=== PATIENT | female | born 1995 | race Hispanic/Latino ===

== ENCOUNTER 2018-07-08 21:03 | Emergency (ER) | payer OTHER ==
[2018-07-08 21:54] LABS: BASOPHILS % (AUTO) 0.8 % (0.0-5.0); EOSINOPHILS % (AUTO) 1.2 % (0.0-8.0); LYMPHOCYTES % (AUTO) 25.2 % (21.0-51.0); MEAN CORPUSCULAR HEMOGLOBIN 29.6 pg (27.0-33.0); MEAN CORPUSCULAR HGB CONC 33.5 g/dL (32.0-36.0); MEAN CORPUSCULAR VOLUME 88.3 fL (79-99); MONOCYTES % (AUTO) 5.8 % (3.0-13.0); PLATELET COUNT (AUTO) 347 K/uL (130-400); RED BLOOD CELL COUNT(AUTO) 4.54 MIL/uL (4.00-5.50); WHITE BLOOD COUNT (AUTO) 14.7 K/uL (4.8-10.8)
[2018-07-08 21:57] LABS: APPEARANCE,URINE Clear (CLEAR); BILIRUBIN,URINE Negative (NEGATIVE); COLOR,URINE Yellow (YELLOW); GLUCOSE, URINE (UA) Negative (NEGATIVE); KETONES,URINE Negative (NEGATIVE); LEUKOCYTE ESTERASE ,URINE Trace (NEGATIVE); NITRATE,URINE Negative (NEGATIVE); OCCULT BLOOD,URINE Negative (NEGATIVE); PH,URINE 6.5 (5.0-8.0); PROTEIN,URINE Negative (NEGATIVE)
[2018-07-08 22:00] LABS: HCG,QUAL RESULT NEGATIVE (NEGATIVE)
[2018-07-08 22:07] LABS: CREATININE 0.5 mg/dL (0.5-1.5); POTASSIUM 3.7 mmol/L (3.5-5.1)
[2018-07-08 22:16] LABS: ALBUMIN 3.8 g/dL (3.5-5.0); BILIRUBIN,TOTAL 0.4 mg/dL (0.2-1.0); TOTAL PROTEIN, SERUM 8.4 g/dL (6.0-8.3)
[2018-07-08 22:18] LABS: BACTERIA,URINE Few /HPF (None Seen); RBC,URINE None Seen /HPF (0-1); WBC,URINE 0-1 /HPF (0-1)
[2018-07-08] MEDS ORDERED: KETOROLAC TROMETHAMINE 30MG/ML ONE (22:25)
[2018-07-08] MEDS ORDERED: IOHEXOL-350 75 ML VIAL IV ONE (22:32)
== END 2018-07-08 23:41 | disposition home or self-care (01) ==
LOC: EDH 21:03
DX: N93.8 Other specified abnormal uterine and vaginal bleeding (principal); I88.0 Nonspecific mesenteric lymphadenitis; R10.30 Lower abdominal pain, unspecified
CPT/HCPCS: 36415; 74177; 80053; 81001; 81025; 84702; 85025; 96374; 99284; J1885; Q9967

== ENCOUNTER 2019-01-30 13:24 | Emergency (ER) | payer OTHER ==
[2019-01-30] MEDS ORDERED: ACETAMINOPHEN EXTRA STRENGTH 500 MG TABLET ONE (14:18)
== END 2019-01-30 15:02 | disposition home or self-care (01) ==
LOC: EDH 13:24
DX: S83.8X2A Sprain of other specified parts of left knee, initial encounter (principal); Z90.49 Acquired absence of other specified parts of digestive tract; W17.89XA Other fall from one level to another, initial encounter; Y93.39 Activity, other involving climbing, rappelling and jumping off; Y92.89 Other specified places as the place of occurrence of the external cause; Y99.8 Other external cause status
CPT/HCPCS: 73562

== ENCOUNTER 2021-07-21 16:33 | Emergency (ER) | payer SELFPAY ==
[~2021-07-21] VITALS: Ht 167.6 cm; Wt 122.5 kg
[2021-07-21 17:02] LABS: BASOPHILS % (AUTO) 0.5 % (0.0-5.0); EOSINOPHILS % (AUTO) 1.9 % (0.0-8.0); HEMATOCRIT 40.4 % (36-48); LYMPHOCYTES % (AUTO) 24.8 % (21.0-51.0); MEAN CORPUSCULAR HEMOGLOBIN 29.6 pg (27.0-33.0); MEAN CORPUSCULAR HGB CONC 33.4 g/dL (32.0-36.0); MEAN CORPUSCULAR VOLUME 88.6 fL (79-99); MONOCYTES % (AUTO) 4.9 % (3.0-13.0); NEUTROPHILS % (AUTO) 67.6 % (40.0-77.0); PLATELET COUNT (AUTO) 307 K/uL (130-400); RED BLOOD CELL COUNT(AUTO) 4.56 MIL/uL (4.00-5.50); RED CELL DISTRIBUTION WIDTH 12.4 % (11.0-15.5)
[2021-07-21 17:10] LABS: APPEARANCE,URINE Clear (CLEAR); BILIRUBIN,URINE Negative (NEGATIVE); COLOR,URINE Yellow (YELLOW); GLUCOSE, URINE (UA) Negative (NEGATIVE); KETONES,URINE Negative (NEGATIVE); LEUKOCYTE ESTERASE ,URINE Negative (NEGATIVE); NITRATE,URINE Negative (NEGATIVE); OCCULT BLOOD,URINE Negative (NEGATIVE); PH,URINE 5.5 (5.0-8.0); PROTEIN,URINE Negative (NEGATIVE)
[2021-07-21 17:19] LABS: CREATININE 0.6 mg/dL (0.5-1.5); POTASSIUM 3.7 mmol/L (3.5-5.1)
[2021-07-21 17:28] LABS: BILIRUBIN,TOTAL 0.3 mg/dL (0.2-1.0); CRP QUANTITATIVE 10.4 mg/L (0.00-9.0); TOTAL PROTEIN, SERUM 8.3 g/dL (6.0-8.3)
[2021-07-21 17:34] VITALS: BP 144/90
[2021-07-21] MEDS ORDERED: ALBU8.5H8 IH (17:45)
[2021-07-21] MEDS ORDERED: FLUT1DIS IH (17:46)
== END 2021-07-21 17:58 | disposition home or self-care (01) ==
LOC: EDH 16:33
DX: R06.02 Shortness of breath (principal); R07.89 Other chest pain; E66.9 Obesity, unspecified; Z79.51 Long term (current) use of inhaled steroids; Z79.899 Other long term (current) drug therapy; Z68.41 Body mass index [BMI] 40.0-44.9, adult
CPT/HCPCS: 36415; 71045; 80053; 81003; 84484; 84703; 85025; 85378; 86140

== ENCOUNTER 2021-09-12 14:14 | Inpatient (IN) | payer OTHER, SELFPAY ==
[~2021-09-12] VITALS: Ht 167.6 cm; Wt 118.1 kg
[~2021-09-12 14:14] MED LIST: ALBU8.5H8 IH; FLUT1DIS IH
[2021-09-12] MEDS ORDERED: 0.9%NACL 1000ML 1,000 ML IV SCH (17:00)
[2021-09-12] MEDS ORDERED: IPRATROPIUM/ALBUTEROL SULFATE 3 ML SOLUTION IH ONE ×3 (17:00→19:59)
[2021-09-12] MEDS ORDERED: DEXAMETHASONE SOD PHOSPHATE 4 MG/ML 1ML VIAL IVP ONE (17:00)
[2021-09-12 17:21] LABS: MEAN CORPUSCULAR HEMOGLOBIN 28.9 pg (27.0-33.0); MEAN CORPUSCULAR HGB CONC 33.3 g/dL (32.0-36.0); PLATELET COUNT (AUTO) 301 K/uL (130-400); RED CELL DISTRIBUTION WIDTH 12.8 % (11.0-15.5); WHITE BLOOD COUNT (AUTO) 16.5 K/uL (4.8-10.8)
[2021-09-12 17:34] LABS: HCG,QUAL RESULT NEGATIVE (NEGATIVE)
[2021-09-12 17:36] LABS: APPEARANCE,URINE Clear (CLEAR); BILIRUBIN,URINE Negative (NEGATIVE); COLOR,URINE Yellow (YELLOW); GLUCOSE, URINE (UA) Negative (NEGATIVE); KETONES,URINE Negative (NEGATIVE); LEUKOCYTE ESTERASE ,URINE Trace (NEGATIVE); NITRATE,URINE Negative (NEGATIVE); OCCULT BLOOD,URINE Negative (NEGATIVE); PROTEIN,URINE Negative (NEGATIVE); UROBILINOGEN,URINE 0.2 mg/dL (0.2-1.0)
[2021-09-12 17:59] LABS: CREATININE 0.5 mg/dL (0.5-1.5); POTASSIUM 3.8 mmol/L (3.5-5.1)
[2021-09-12 18:02] LABS: EOSINOPHILS % (MANUAL) 4 % (1-6); LYMPHOCYTES % (MANUAL) 25 % (22-44); MONOCYTES % (MANUAL) 4 % (2-9); REACTIVE LYMPHOCYTES 4 % (0-0); SEGMENTED NEUTROPHILS % 63 % (40-70)
[2021-09-12 18:03] LABS: ALBUMIN 4.2 g/dL (3.5-5.0); BILIRUBIN,TOTAL 0.5 mg/dL (0.2-1.0); MAN.DIFF COMMENT-IMPRESSION MANUAL DIFFERENTIAL; PLATELET MORPHOLOGY COMMENT ADEQUATE; TOTAL PROTEIN, SERUM 8.5 g/dL (6.0-8.3)
[2021-09-12 18:58] LABS: BACTERIA,URINE Rare /HPF (None Seen); RBC,URINE None Seen /HPF (0-1); WBC,URINE 0-1 /HPF (0-1)
[2021-09-12 18:59] LABS: SQUAMOUS EPITHELIAL CELL,UR 0-2 /HPF (0-2)
[2021-09-12 23:18] LABS: ABG BASE EXCESS -2.3 mmol/L (-2.0-3.0); ABG HCO3 21.7 mmol/L (21.0-28.0); ABG PCO2 35 mmHg (32-45)
[2021-09-13] MEDS ORDERED: GUAIFENESIN-DM 200/20 MG 10 ML PO PRN (00:30)
[2021-09-13] MEDS ORDERED: ONDANSETRON 4MG INJ IV PRN (00:30)
[2021-09-13] MEDS ORDERED: LACTATED RINGERS 1000ML 1,000 ML IV SCH (00:30)
[2021-09-13] MEDS ORDERED: DiphenhydrAMINE HCL 50 MG/ML VIAL IV PRN (00:30)
[2021-09-13] MEDS ORDERED: ERGOCALCIFEROL (VITAMIN D2) 50,000 UNIT CAPSULE PO ONE (00:30)
[2021-09-13] MEDS ORDERED: IPRATROPIUM/ALBUTEROL SULFATE 3 ML SOLUTION IH PRN (00:30)
[2021-09-13] MEDS ORDERED: ACETAMINOPHEN WITH CODEINE 1 TAB TAB PO PRN (00:30)
[2021-09-13] MEDS ORDERED: ERGOCALCIFEROL (VITAMIN D2) 50,000 UNIT CAPSULE ONE (01:47)
[2021-09-13] MEDS ORDERED: 0.9% NACL 250ML 250 ML ONE (01:49)
[2021-09-13] MEDS: ZINC SULFATE 220 CAPSULE PO SCH ×2 (01:53→09:49)
[2021-09-13] MEDS: ASCORBIC ACID 500 MG TAB PO SCH ×2 (01:53→09:49)
[2021-09-13] MEDS: DOXYCYCLINE 100MG+NS 250ML IV SCH ×2 (01:53→13:54)
[2021-09-13] MEDS: CEFTRIAXONE 1G VIAL IVP SCH ×2 (01:53→13:54)
[2021-09-13] MEDS ORDERED: LACTATED RINGERS 1000ML IV SCH (05:00)
[2021-09-13 05:21] LABS: BASOPHILS % (AUTO) 0.3 % (0.0-5.0); HEMATOCRIT 38.6 % (36-48); MEAN CORPUSCULAR HEMOGLOBIN 29.9 pg (27.0-33.0); MEAN CORPUSCULAR HGB CONC 34.2 g/dL (32.0-36.0); MEAN CORPUSCULAR VOLUME 87.5 fL (79-99); MONOCYTES % (AUTO) 1.4 % (3.0-13.0); NEUTROPHILS % (AUTO) 84.2 % (40.0-77.0); PLATELET COUNT (AUTO) 309 K/uL (130-400); RED BLOOD CELL COUNT(AUTO) 4.41 MIL/uL (4.00-5.50); RED CELL DISTRIBUTION WIDTH 12.8 % (11.0-15.5); WHITE BLOOD COUNT (AUTO) 14.7 K/uL (4.8-10.8)
[2021-09-13 05:52] LABS: BILIRUBIN,TOTAL 0.5 mg/dL (0.2-1.0); CREATININE 0.5 mg/dL (0.5-1.5); CRP QUANTITATIVE 9.6 mg/L (0.00-9.0); POTASSIUM 3.7 mmol/L (3.5-5.1); TOTAL PROTEIN, SERUM 8.3 g/dL (6.0-8.3)
[2021-09-13] MEDS: DEXAMETHASONE SOD PHOSPHATE 4 MG/ML 1ML VIAL IVP SCH (09:49)
[2021-09-13] MEDS: ENOXAPARIN SODIUM 60 MG/0.6 ML SQ SCH ×2 (09:49→21:06)
[2021-09-13] MEDS: FAMOTIDINE 20MG VIAL IV SCH ×2 (09:49→21:06)
[2021-09-13] MEDS: ACETYLCYSTEINE 600 MG CAPSULE PO SCH ×2 (09:49→21:06)
[2021-09-13 14:21] LABS: HEMOGLOBIN A1C 6.8 % (4.0-6.0)
[2021-09-13] MEDS: INSULIN HUMULIN R 100 UNIT/ML 3ML SQ SCH ×2 (16:29→23:29)
[2021-09-14] VITALS: BP 147/87
[2021-09-14] MEDS: CEFTRIAXONE 1G VIAL IVP SCH ×2 (00:04→12:35)
[2021-09-14] MEDS: DOXYCYCLINE 100MG+NS 250ML IV SCH ×2 (00:04→12:35)
[2021-09-14] MEDS: ACETAMINOPHEN WITH CODEINE 1 TAB TAB PO PRN ×2 (00:11→09:20)
[2021-09-14 04:00] VITALS: BP 147/71
[2021-09-14 05:13] LABS: BASOPHILS % (AUTO) 0.2 % (0.0-5.0); HEMATOCRIT 37.6 % (36-48); LYMPHOCYTES % (AUTO) 16.1 % (21.0-51.0); MEAN CORPUSCULAR HEMOGLOBIN 28.7 pg (27.0-33.0); MEAN CORPUSCULAR HGB CONC 32.4 g/dL (32.0-36.0); MEAN CORPUSCULAR VOLUME 88.5 fL (79-99); MONOCYTES % (AUTO) 5.2 % (3.0-13.0); NEUTROPHILS % (AUTO) 76.8 % (40.0-77.0); PLATELET COUNT (AUTO) 306 K/uL (130-400); RED BLOOD CELL COUNT(AUTO) 4.25 MIL/uL (4.00-5.50); RED CELL DISTRIBUTION WIDTH 12.7 % (11.0-15.5); WHITE BLOOD COUNT (AUTO) 18.7 K/uL (4.8-10.8)
[2021-09-14 05:32] LABS: ALANINE AMINOTRANSFERASE 82 U/L (12-78); ALBUMIN 3.7 g/dL (3.5-5.0); ASPARTATE AMINOTRANSFERASE 48 U/L (10-37); BILIRUBIN,TOTAL 0.3 mg/dL (0.2-1.0); CARBON DIOXIDE 25 mmol/L (21-32); CHLORIDE 100 mmol/L (101-111); CREATININE 0.5 mg/dL (0.5-1.5); GLOMERULAR FILTR. RATE CALC 159 mL/min (>60); GLUCOSE,RANDOM 139 mg/dL (70-105); LACTATE DEHYDROGENASE 174 U/L (81-234); POTASSIUM 3.6 mmol/L (3.5-5.1); SODIUM SERUM 136 mmol/L (136-145); TOTAL PROTEIN, SERUM 7.6 g/dL (6.0-8.3); UREA NITROGEN, BLOOD 9 mg/dL (7-18)
[2021-09-14 06:14] LABS: CRP QUANTITATIVE < 2.00 mg/L (0.00-9.0)
[2021-09-14] MEDS: INSULIN HUMULIN R 100 UNIT/ML 3ML SQ SCH ×2 (06:30→11:30)
[2021-09-14 08:00] VITALS: BP 142/73
[2021-09-14] MEDS: ACETYLCYSTEINE 600 MG CAPSULE PO SCH (08:52)
[2021-09-14] MEDS: FAMOTIDINE 20MG VIAL IV SCH (08:52)
[2021-09-14] MEDS: ZINC SULFATE 220 CAPSULE PO SCH (08:52)
[2021-09-14] MEDS: ASCORBIC ACID 500 MG TAB PO SCH (08:52)
[2021-09-14] MEDS: DEXAMETHASONE SOD PHOSPHATE 4 MG/ML 1ML VIAL IVP SCH (08:52)
[2021-09-14] MEDS: ENOXAPARIN SODIUM 60 MG/0.6 ML SQ SCH (08:53)
[2021-09-14 12:00] VITALS: BP 136/85
[2021-09-14] MEDS ORDERED: DEXA6TAB PO (13:46)
== END 2021-09-14 17:00 | disposition home or self-care (01) | DRG 177 ==
LOC: EDH 14:14 → EDHIP 14:15 → 4BH 09-13 21:43
PROVIDERS: ADMIT Internal Medicine; ATTEND Internal Medicine
DX: U07.1 COVID-19 (principal); J12.82 Pneumonia due to coronavirus disease 2019; Z68.41 Body mass index [BMI] 40.0-44.9, adult; E66.9 Obesity, unspecified; G47.00 Insomnia, unspecified; Z90.49 Acquired absence of other specified parts of digestive tract
CPT/HCPCS: 36415; 36600; 71045; 80053; 81001; 81025; 82550; 82728; 82803; 82948; 83036; 83605; 83615; 84145; 84484; 85025; 85378; 86140; 86850; 86900; 86901; 87040; 87088; 87486; 87581; 87633; 87635; 87798; 93005; 94640; C9803; G0378; J0696; J1100; J1650; J2405; J3490; J7050; J7120

== ENCOUNTER 2022-03-08 22:33 | Emergency (ER) | payer OTHER ==
[~2022-03-08] VITALS: Ht 162.6 cm; Wt 131.5 kg
[~2022-03-08 22:33] MED LIST changes: -ALBU8.5H8 IH; +DEXA6TAB PO; -FLUT1DIS IH
[2022-03-08 23:07] LABS: BASOPHILS % (AUTO) 0.6 % (0.0-5.0); EOSINOPHILS % (AUTO) 3.6 % (0.0-8.0); HEMATOCRIT 38.7 % (36-48); LYMPHOCYTES % (AUTO) 35.4 % (21.0-51.0); MEAN CORPUSCULAR HEMOGLOBIN 29.5 pg (27.0-33.0); MEAN CORPUSCULAR HGB CONC 34.4 g/dL (32.0-36.0); MEAN CORPUSCULAR VOLUME 85.8 fL (79-99); MONOCYTES % (AUTO) 4.8 % (3.0-13.0); NEUTROPHILS % (AUTO) 55.2 % (40.0-77.0); PLATELET COUNT (AUTO) 300 K/uL (130-400); RED BLOOD CELL COUNT(AUTO) 4.51 MIL/uL (4.00-5.50); RED CELL DISTRIBUTION WIDTH 12.3 % (11.0-15.5); WHITE BLOOD COUNT (AUTO) 13.5 K/uL (4.8-10.8)
[2022-03-08 23:09] LABS: APPEARANCE,URINE CLEAR (CLEAR); BILIRUBIN,URINE NEGATIVE (NEGATIVE); COLOR,URINE YELLOW (YELLOW); GLUCOSE, URINE (UA) NEGATIVE (NEGATIVE); KETONES,URINE NEGATIVE (NEGATIVE); LEUKOCYTE ESTERASE ,URINE NEGATIVE (NEGATIVE); NITRATE,URINE NEGATIVE (NEGATIVE); OCCULT BLOOD,URINE NEGATIVE (NEGATIVE); PROTEIN,URINE NEGATIVE (NEGATIVE); UROBILINOGEN,URINE 0.2 mg/dL (0.2-1.0)
[2022-03-08 23:12] LABS: HCG,QUALITATIVE URINE NEGATIVE (NEGATIVE)
[2022-03-08 23:17] LABS: CREATININE 0.6 mg/dL (0.5-1.5); POTASSIUM 4.1 mmol/L (3.5-5.1)
[2022-03-08 23:27] LABS: ALBUMIN 3.7 g/dL (3.5-5.0); TOTAL PROTEIN, SERUM 7.9 g/dL (6.0-8.3)
[2022-03-08] MEDS ORDERED: 0.9%NACL 1000ML 1,000 ML IV ONE (23:30)
[2022-03-08] MEDS ORDERED: MORPHINE 4 MG SYG IVP ONE (23:30)
[2022-03-08] MEDS ORDERED: ONDANSETRON 4MG INJ IVP ONE (23:30)
[2022-03-09] MEDS ORDERED: IOHEXOL 350 MG/ML 100ML INFUS..BTL IV ONE (00:16)
[2022-03-09] MEDS ORDERED: LEVOFLOXACIN 500 MG/D5W 100 ML 100 ML IV SCH (02:00)
[2022-03-09] MEDS ORDERED: 0.9%NACL 1000ML 1,000 ML IV ONE (02:00)
[2022-03-09] MEDS ORDERED: KETOROLAC 30MG VIAL (30MG/ML) IVP ONE (02:00)
[2022-03-09 04:30] VITALS: BP 139/89
[2022-03-09] MEDS ORDERED: DIPH1TAB PO (04:51)
[2022-03-09] MEDS ORDERED: CIPR-278 PO (04:51)
[2022-03-09] MEDS ORDERED: ONDA4TAB10 PO (04:51)
== END 2022-03-09 05:07 | disposition home or self-care (01) ==
LOC: EDH 22:33
DX: K52.9 Noninfective gastroenteritis and colitis, unspecified (principal); R73.9 Hyperglycemia, unspecified; E86.0 Dehydration; Z20.822 Contact with and (suspected) exposure to COVID-19; Z90.49 Acquired absence of other specified parts of digestive tract; Z79.52 Long term (current) use of systemic steroids
CPT/HCPCS: 99285; 74177; 96375 ×2; 87635; 96361; 80053; 83690; 85025; 87040 ×2; 83605; 81003; 81025; 36415; 96365; C9803; J7030 ×2; J2405; J2270; J1956; J1885; Q9967

== ENCOUNTER 2022-07-15 10:14 | Emergency (ER) | payer OTHER ==
[~2022-07-15] VITALS: Ht 165.1 cm; Wt 117.9 kg
[~2022-07-15 10:14] MED LIST changes: +CIPR-278 PO; +DIPH1TAB PO; +ONDA4TAB10 PO
[2022-07-15] MEDS ORDERED: IBUP-2070 PO (13:12)
[2022-07-15] MEDS ORDERED: IBUPROFEN 600 MG TABLET PO ONE (13:30)
[2022-07-15 13:51] VITALS: BP 133/74
== END 2022-07-15 13:53 | disposition home or self-care (01) ==
LOC: EDH 10:14
DX: S60.221A Contusion of right hand, initial encounter (principal); R03.0 Elevated blood-pressure reading, without diagnosis of hypertension; Z90.49 Acquired absence of other specified parts of digestive tract; Z79.899 Other long term (current) drug therapy; W18.39XA Other fall on same level, initial encounter; Y93.89 Activity, other specified; Y92.89 Other specified places as the place of occurrence of the external cause; Y99.8 Other external cause status
CPT/HCPCS: 73090; 73110; 73130; 81025

== ENCOUNTER 2022-08-22 07:33 | Emergency (ER) | payer SELFPAY ==
[~2022-08-22] VITALS: Ht 165.1 cm; Wt 117.9 kg
[~2022-08-22 07:33] MED LIST changes: +IBUP-2070 PO
[2022-08-22 07:38] VITALS: BP 157/99
[2022-08-22] MEDS ORDERED: MAG/ALUM/SIMETH 30 ML UDCUP PO ONE (08:00)
[2022-08-22] MEDS ORDERED: LIDOCAINE HCL 2% VISCOUS 15 ML UDCUP PO ONE (08:00)
[2022-08-22] MEDS ORDERED: PANT40TA55 PO (08:57)
== END 2022-08-22 09:14 | disposition home or self-care (01) ==
LOC: EDH 07:33
DX: K29.70 Gastritis, unspecified, without bleeding (principal); Z90.49 Acquired absence of other specified parts of digestive tract; Z79.52 Long term (current) use of systemic steroids; Z79.1 Long term (current) use of non-steroidal anti-inflammatories (NSAID)

== ENCOUNTER 2024-07-06 15:39 | Emergency (ER) | payer SELFPAY ==
[~2024-07-06] VITALS: Ht 162.6 cm; Wt 115.7 kg
[~2024-07-06 15:39] MED LIST changes: +ONDA-243 PO; -ONDA4TAB10 PO; +PANT40TA55 PO
[2024-07-06 16:03] LABS: BASOPHILS # (AUTO) 0.07 K/uL (0.00-0.20); BASOPHILS % (AUTO) 0.5 % (0.0-5.0); EOSINOPHILS # (AUTO) 0.33 K/uL (0.00-0.70); EOSINOPHILS % (AUTO) 2.2 % (0.0-8.0); HEMATOCRIT 39.6 % (36-48); IMMATURE GRANULOCYTE ABSOLUTE 0.06 K/uL (0-1); LYMPHOCYTES # (AUTO) 5.1 K/uL (1.0-4.8); LYMPHOCYTES % (AUTO) 34.1 % (21.0-51.0); MEAN CORPUSCULAR HEMOGLOBIN 29.8 pg (27.0-33.0); MEAN CORPUSCULAR HGB CONC 34.3 g/dL (32.0-36.0); MEAN CORPUSCULAR VOLUME 86.8 fL (79-99); MONOCYTES # (AUTO) 0.7 K/uL (0.1-1.0); MONOCYTES % (AUTO) 4.9 % (3.0-13.0); NEUTROPHILS # (AUTO) 8.7 K/uL (1.8-7.7); NEUTROPHILS % (AUTO) 57.9 % (40.0-77.0); PLATELET COUNT (AUTO) 266 K/uL (130-400); RED BLOOD CELL COUNT(AUTO) 4.56 MIL/uL (4.00-5.50); RED CELL DISTRIBUTION WIDTH 12.4 % (11.0-15.5)
[2024-07-06 16:14] LABS: CREATININE 0.4 mg/dL (0.5-1.0); POTASSIUM 3.9 mmol/L (3.5-5.1)
--- NOTE | 2024-07-06 16:45 | HMCIMG ---
US OB <14 WEEKS REASON: vaginal bleeding/abd pain approx 11 weeks COMPARISON: None TECHNIQUE: Transvaginal pelvic sonogram was performed. FINDINGS: There is an intrauterine gestation. There is a pole corresponding with a 7 week 5 day IUP. There is no cardiac activity. This should be easily visible at this stage of gestation. Findings are consistent with intrauterine demise and a nonviable gestation. Ovaries were not separately identified. There are no adnexal masses. There is no free fluid in the cul-de-sac. IMPRESSION: 1. Intrauterine gestation with a pole corresponding with a 7 week 5 day IUP. 2. There is no heartbeat, findings are consistent with demise and a nonviable gestation.
[2024-07-06 16:55] LABS: ADD UA MICROSCOPIC YES; APPEARANCE,URINE CLOUDY (CLEAR); BILIRUBIN,URINE NEGATIVE (NEGATIVE); COLOR,URINE COLORLESS (YELLOW); GLUCOSE, URINE (UA) NEGATIVE (NEGATIVE); KETONES,URINE NEGATIVE (NEGATIVE); LEUKOCYTE ESTERASE ,URINE 500 Leu/uL (NEGATIVE); NITRATE,URINE NEGATIVE (NEGATIVE); OCCULT BLOOD,URINE LARGE (NEGATIVE); PH,URINE 6.5 (5.0-8.0); PROTEIN,URINE NEGATIVE (NEGATIVE); UROBILINOGEN,URINE 0.2 mg/dL (0.2-1.0)
[2024-07-06 16:57] LABS: BACTERIA,URINE FEW /HPF (None Seen); SQUAMOUS EPITHELIAL CELL,UR FEW /HPF (0-2); YEAST,URINE BUDDING RARE /HPF (None Seen)
--- NOTE | 2024-07-06 17:06 | ERN ---
General Chief Complaint: Vaginal Problems/Bleeding Stated Complaint: VAGINAL BLEEDING, 11 WEEKS Time Seen by MD: 15:44 Time Seen by Midlevel: 15:44 Source: patient History of Present Illness Initial Comments Patient is a 29-year-old female AB1 who presents to the ER with vaginal bleeding and suprapubic abdominal cramping. Patient states earlier today she noticed bright red blood while wiping. Denies the passing of any large clots. Denies fever, chills, or any other symptoms at this time. She reports being approximately 11 weeks . She was followed by an OBGYN in [facility] and last saw him approximately three weeks ago where she had a normal ultrasound with an intrauterine that measured approximately eight weeks. Allergies: Coded Allergies: No Known Allergies (Unverified Allergy, Unknown, 01/31/19) Home Meds Active Scripts Cephalexin Monohydrate (Keflex) 500 Mg Cap, 500 MG PO BID for 5 Days, #10 CAP Prov:MAHENDRA STALEY 07/06/24 Pantoprazole Sodium (Protonix) 40 Mg Ectab, 40 MG PO DAILY for 30 Days, #30 TAB.EC Prov:NORTH BAUTISTA MD 08/22/22 Ibuprofen (Ibuprofen) 600 Mg Tablet, 600 MG PO Q6H PRN for PAIN, #30 TAB 0 Refills Prov:EVENS PRATHER MD 07/15/22 Diphenoxylate HCl/Atropine (Lomotil Tablet) 1 Each Tablet, 2 TAB PO Q12H PRN for DIARRHEA for 5 Days, #10 TAB 0 Refills Prov:EVENS PRATHER MD 03/09/22 Ondansetron (Ondansetron Odt) 4 Mg Tab.rapdis, 4 MG PO TID PRN for NAUSEA, #15 TAB 0 Refills Prov:EVENS PRATHER MD 03/09/22 Ciprofloxacin HCl (Cipro) 500 Mg Tablet, 1 TAB PO BID for 7 Days, #14 TAB 0 Refills Prov:EVENS PRATHER MD 03/09/22 Dexamethasone (Dexamethasone) 6 Mg Tablet, 6 MG PO DAILY for 8 Days, #8 TAB Prov:SOPHIA DOSS Jr., MD 09/14/21 Past Medical History Past Medical History: No Pertinent History, Diabetes-Type II, Gallstones Medical History Other: GALL STONES Past Surgical History: Cholecystectomy Social History Social History: Negative, Lives with family Female( History) LMP: Apr 20, 2024 : 1 Para: 0 Aborts: 0 ROS Dictation CONSTITUTIONAL: Negative except for HPI HEAD/FACE: Negative except for HPI EENT: Negative except for HPI RESPIRATORY: Negative except for HPI GASTROINTESTINAL/ABDOMINAL: Negative except for HPI GENITOURINARY: Negative except for HPI MUSCULOSKELETAL: Negative except for HPI INTEGUMENTARY: Negative except for HPI NEUROLOGICAL/PSYCH: Negative except for HPI HEMATOLOGIC/LYMPHATIC: Negative except for HPI All Systems Negative, Except as noted above. 13 point review of systems assessed and all negative except for above. Physical Exam Physical Exam Dictation Vital Signs reviewed General Appearance: Alert, oriented x 3, no acute distress, well developed, nourished. Head and Face: non-traumatic. Eyes: PERRL, pink conjunctivas, eyelid no trauma, anterior chamber with arcus senilis. Ears: Pinnas intact and no signs of trauma or erythema ear canals clear and no discharge TM no erythema Nose: No discharge, no bleeding. Oropharynx: Mouth normal, tongue pink, pharynx clear,no erythema, tonsils no exudates, no abscesses noted, mucous membrane moist Neck: Supple, non-tender, no thyromegaly, no masses, no JVD, no bruits Breast:Deferred Chest:No tenderness, no crepitus, no paradoxical movement, no retractions Lungs:Clear, well-ventilated, symmetric, no rales, no wheezing, no rhonchi, no stridor, good breath sounds bilaterally Heart: Regular rate, regular rhythm, no murmur, no gallops Vascular: no peripheral edema, Abdomen: Soft, positive bowel sounds, nondistended, no guarding, nontender, no rebound, no masses no hepatomegaly, no splenomegaly, no Osei's sign, no hernias. Rectal: Deferred Genital: Deferred Neurological: Normal speech, motor function intact, sensory function intact Musculoskeletal: Neck nontender, full range of motion, back nontender, full range of motion, Extremities: nontender, full range of motion Skin: Color pink, dry, no turgor, no rash, no lacerations, no abrasions, no contusions. Lymphatic: Deferred Results Laboratory and Microbiology Lab and Micro Result Laboratory Tests Test 07/06/24 15:57 07/06/24 16:17 White Blood Count 15.0 K/uL (4.8-10.8) H Red Blood Count 4.56 MIL/uL (4.00-5.50) Hemoglobin 13.6 g/dL (12.0-16.0) Hematocrit 39.6 % (36-48) Mean Corpuscular Volume 86.8 fL (79-99) Mean Corpuscular Hemoglobin 29.8 pg (27.0-33.0) Mean Corpuscular Hemoglobin Concent 34.3 g/dL (32.0-36.0) Red Cell Distribution Width 12.4 % (11.0-15.5) Platelet Count 266 K/uL (130-400) Mean Platelet Volume 10.4 fL (7.5-10.5) Immature Granulocyte % (Auto) 0.4 % (0-1) Neutrophils (%) (Auto) 57.9 % (40.0-77.0) Lymphocytes (%) (Auto) 34.1 % (21.0-51.0) Monocytes (%) (Auto) 4.9 % (3.0-13.0) Eosinophils (%) (Auto) 2.2 % (0.0-8.0) Basophils (%) (Auto) 0.5 % (0.0-5.0) Neutrophils # (Auto) 8.7 K/uL (1.8-7.7) H Lymphocytes # (Auto) 5.1 K/uL (1.0-4.8) H Monocytes # (Auto) 0.7 K/uL (0.1-1.0) Eosinophils # (Auto) 0.33 K/uL (0.00-0.70) Basophils # (Auto) 0.07 K/uL (0.00-0.20) Absolute Immature Granulocyte (auto 0.06 K/uL (0-1) Nucleated Red Blood Cells 0.0 % (0.0-0.19) Sodium Level 137 mmol/L (136-145) Potassium Level 3.9 mmol/L (3.5-5.1) Chloride Level 100 mmol/L (101-111) L Carbon Dioxide Level 28 mmol/L (21-32) Blood Urea Nitrogen 10 mg/dL (7-18) Creatinine 0.4 mg/dL (0.5-1.0) L Glomerular Filtration Rate Calc 137 mL/min (>90) Random Glucose 113 mg/dL (70-105) H Total Calcium 9.2 mg/dL (8.5-10.1) Human Chorionic Gonadotropin, Quant 5131 mIU/mL (0-5) H Urine Color COLORLESS (YELLOW) Urine Appearance CLOUDY (CLEAR) H Urine pH 6.5 (5.0-8.0) Urine Specific [place] 1.003 (1.001-1.031) Urine Protein NEGATIVE mg/dL (NEGATIVE) Urine Glucose (UA) NEGATIVE mg/dL (NEGATIVE) Urine Ketones NEGATIVE mg/dL (NEGATIVE) Urine Occult Blood LARGE (NEGATIVE) H Urine Nitrate NEGATIVE (NEGATIVE) Urine Bilirubin NEGATIVE mg/dL (NEGATIVE) Urine Urobilinogen 0.2 mg/dL (0.2-1.0) Urine Leukocyte Esterase 500 [place]/uL (NEGATIVE) H Urine RBC 11-25 /HPF (0-1) H Urine WBC 11-25 /HPF (0-1) H Urine Squamous Epithelial Cells FEW /HPF (0-2) Urine Bacteria FEW /HPF (None Seen) Urine Yeast RARE /HPF (None Seen) MDM MDM: Patient is a 29-year-old female AB1 who presents to the ER with vaginal bleeding and suprapubic abdominal cramping. Patient states earlier today she noticed bright red blood while wiping. Denies the passing of any large clots. Denies fever, chills, or any other symptoms at this time. She reports being approximately 11 weeks . She was followed by an OBGYN in [facility] and last saw him approximately three weeks ago where she had a normal ultrasound with an intrauterine that measured approximately eight weeks. On physical examination patient is in no acute distress. She is afebrile and nontoxic appearing. [place] [address]. Her chemistries are stable. Her hCG quant today is [id number]. Her pelvic ul trasound reveals an intrauterine gestation measuring approximately seven weeks with no heart tones. Her ultrasound is consistent with demise and a nonviable . Her urinalysis consistent with a urinary tract infection. I discussed lab and imaging results with the patient. Patient's leukocytosis is most likely related to her urinary tract infection. At this time patient is not ill-appearing. She is not septic. She is afebrile. She was given1 g of Rocephin in the emergency department for her urine infection will be discharged home on antibiotics. At this time we will take the conservative approach and let her body start the process of a miscarriage. She will be following up with her OBGYN in the next 24-48 hours. Patient is stable for discharge at this time Differential diagnosis:. , urinary tract infection, demise There are no social concerns with this patient. Prescription drug management Prescriptions will include: Keflex Medical management and examination interpretation discussions were had by me with other qualified healthcare professionals as indicated for the patient's care. ED Course Orders Procedure Category Date Status Time Basic Metabolic Panel LAB 07/06/24 Complete 15:44 Cbc With Differential LAB 07/06/24 Complete 15:44 Hcg,Quantitative LAB 07/06/24 Complete 15:44 Urinalysis Profile LAB 07/06/24 Complete 15:44 Us Ob <14 Weeks US 07/06/24 Resulted 15:44 *Nursing CPOE 07/06/24 Transmitted Communication: 15:44 Culture Urine EDWIN 07/06/24 Complete 16:56 Ceftriaxone 1g Vial PHA 07/06/24 Complete (Rocephine 1g Inj) 17:00 Current Medications Medications (Trade) Dose Ordered Sig/Marielos Route PRN Reason Start Time Stop Time Status Last Admin Dose Admin Ceftriaxone Sodium (ROCEphine 1G INJ) 1 gm ONCE ONCE IVPB 07/06/24 17:00 07/06/24 17:07 DC 07/06/24 17:20 Vital Signs Date Time Temp Pulse Resp B/P (MAP) Pulse Ox O2 Delivery O2 Flow Rate FiO2 07/06/24 18:17 98.4 91 18 142/81 96 Room Air* 0 21 07/06/24 15:51 91 18 141/91 99 Room Air* 0 21 07/06/24 15:41 98.8 82 16 140/85 96 Room Air 0 [place] [address] [address] IMAGING REPORT Signed PATIENT: ALMA MENDEZ MR#: [id number] : 1995 SEX: F AGE: 29 LOCATION: [facility] ORDER [id number] STATUS: REG ER REPORT#: [id number] SERVICE 1544 REASON: vaginal bleeding/abd pain approx 11 weeks ORDERING PHYSICIAN: MAHENDRA STALEY PROCEDURE: OB <14 - US OB <14 WEEKS US OB <14 WEEKS REASON: vaginal bleeding/abd pain approx 11 weeks COMPARISON: None TECHNIQUE: Transvaginal pelvic sonogram was performed. FINDINGS: There is an intrauterine gestation. There is a pole corresponding with a 7 week 5 day IUP. There is no cardiac activity. This should be easily visible at this stage of gestation. Findings are consistent with intrauterine demise and a nonviable gestation. Ovaries were not separately identified. There are no adnexal masses. There is no free fluid in the cul-de-sac. IMPRESSION: 1. Intrauterine gestation with a pole corresponding with a 7 week 5 day IUP. 2. There is no heartbeat, findings are consistent with demise and a nonviable gestation. DICTATED BY: SANDRA HERNÁNDEZ MD DATE: 07/06/241641 ELECTRONICALLY SIGNED BY: SANDRA HERNÁNDEZ MD DATE: 07/06/241644 DX & DISP Disposition: Discharge Departure Impression: Primary Impression: demise Additional Impressions: Leukocytosis, Urinary tract infection Condition: Stable Scripts Cephalexin Monohydrate (Keflex) 500 Mg Cap 500 MG PO BID for 5 Days, #10 CAP Prov: MAHENDRA STALEY 07/06/24 Additional Instructions: Your blood work today shows an elevated white blood cell count. This is most likely related to your urine infection. Your pelvic ultrasound shows an intrauterine gestation measuring approximately seven weeks and five days. There was no heartbeat. This is consistent with demise and a nonviable gestation. You will need to follow up with your OBGYN within the next 24-48 hours for repeat evaluation. Your hCG quant today was [id number] Referrals: SELF,REFERRAL (PCP) Time of Disposition: 17:51 ATTESTATION BY PHYSICIAN I PERFORMED THE SUBSTANTIVE PORTION OF THE VISIT. I HAVE REVIEWED AND PERSONALLY MADE AND APPROVED THE MANAGEMENT PLAN THAT IS DOCUMENTED IN THE NOTE BY MYSELF FOR THE A PP. I ACKNOWLEDGED FOR RESPONSIBILITY FOR THE PATIENT'S MANAGEMENT PLAN. I have reviewed the case, and I agree with, Diagnosis and Plan MAHENDRA STALEY Jul 06, 2024 17:06 NORTH BAUTISTA MD Jul 08, 2024 04:49
[2024-07-06] MEDS: cefTRIAXone 1G VIAL IVPB ONE (17:20)
[2024-07-06] MEDS ORDERED: CEPH500B PO (17:52)
[2024-07-06 18:17] VITALS: BP 142/81; PULSE 91; RESP 18; TEMP 98.5; O2SAT 96
== END 2024-07-06 18:19 | disposition home or self-care (01) ==
LOC: EDH 15:39
DX: O02.1 Missed abortion (principal); O99.111 Other diseases of the blood and blood-forming organs and certain disorders involving the immune mechanism complicating pregnancy, first trimester; D72.829 Elevated white blood cell count, unspecified; O23.41 Unspecified infection of urinary tract in pregnancy, first trimester; N39.0 Urinary tract infection, site not specified; Z3A.11 11 weeks gestation of pregnancy; Z79.52 Long term (current) use of systemic steroids; Z79.899 Other long term (current) drug therapy; Z90.49 Acquired absence of other specified parts of digestive tract
CPT/HCPCS: 99285; 96365; 76801; 80048; 84702; 85025; 87086 ×2; 87186; 81001; 36415; J0696